=== PATIENT | female | born 1970 | race Caucasian/White ===

== ENCOUNTER 2024-07-07 12:24 | Emergency (ER) | payer MEDICAID, OTHER ==
[~2024-07-07] VITALS: Ht 170.2 cm; Wt 57.6 kg
[2024-07-07 12:28] VITALS: BP 145/91; TEMP 98.3
[2024-07-07] MEDS ORDERED: IBUP-1490 PO (14:17)
[2024-07-07] MEDS ORDERED: KETOROLAC TROMETHAMINE 15 MG/ML VIAL ONE (14:27)
[2024-07-07] MEDS: KETOROLAC TROMETHAMINE 15 MG/ML VIAL IM ONE (14:32)
[2024-07-07 14:33] VITALS: O2SAT 97
== END 2024-07-07 14:34 | disposition home or self-care (01) ==
LOC: ER 12:39
DX: S22.42XA Multiple fractures of ribs, left side, initial encounter for closed fracture (principal); W07.XXXA Fall from chair, initial encounter; Y93.89 Activity, other specified; Y92.89 Other specified places as the place of occurrence of the external cause; Y99.8 Other external cause status
CPT/HCPCS: 99283; 96372; 71100; J1885